=== PATIENT | male | born 1985 | race Two or more races ===

== ENCOUNTER 2016-11-09 14:17 | Emergency (ER) | payer BC ==
[2016-11-09 14:25] VITALS: BP 127/73
[2016-11-09] MEDS ORDERED: DIPH/PERTUSS(ACELL)/TETANUS VAC/PF 0.5 ML SYR (>=10YO) IM ONE (14:25)
[2016-11-09] MEDS ORDERED: LIDOCAINE 1% INJ-PF (10 MG/ML) 30 ML SDV INJ ONE (14:38)
--- NOTE | 2016-11-09 14:38 | ER Document Report ---
ED Wound - General Chief Complaint: Laceration Stated Complaint: HAND LACERATION Time Seen by Provider: 11/09/16 14:25 TRAVEL OUTSIDE OF THE [place] IN LAST 30 DAYS: No - HPI Patient complains to provider of: Laceration Occurred: Just prior to arrival Onset/Duration: Sudden Quality of pain: Throbbing Context: Injury - was trying to instal a washing machine Capillary refill: < 3 seconds Sensations intact: Yes Distal pulses present: Yes - Related Data Allergies/Adverse Reactions: No Known Allergies Allergy (Verified 11/09/16 14:21) Past Medical History - Social History Smoking Status: Never Smoker Family History: Reviewed & Not Pertinent Patient has suicidal ideation: No Patient has homicidal ideation: No Renal/ Medical History: Denies: Hx Peritoneal Dialysis Review of Systems - Review of Systems Constitutional: No symptoms reported Musculoskeletal: No symptoms reported Skin: See HPI -: Yes All other systems reviewed and negative Physical Exam - Vital signs Vitals: Temp Pulse Resp BP Pulse Ox 98.5 F 78 16 127/73 H 97 11/09/16 14:23 11/09/16 14:23 11/09/16 14:23 11/09/16 14:23 11/09/16 14:23 - General General appearance: Appears well, Alert In distress: None - Cardiovascular Pulses: Normal: Radial Normal capillary refill: Yes - Extremities Hand: Normal, Nontender, No evidence of FB. No: Deformity, Dislocation, Laceration, Nail injury, Tendon deficit - Neurological Additional motor exam normals: Equal ranch hand livestock. No: Weakness Sensory: No: Normal - Skin Skin irregularity: Laceration - 2cm leceration on the radial dorsal side of the right thumb, no active bleeding Course - Re-evaluation Re-evalutation: 11/09/16 21:52 Patient is a 31-year-old male who is hemodynamic stable, no acute distress and afebrile. Evidence of foreign body, tendon injury. Tetanus updated. Laceration closed with 3 interrupted sutures of 6-0 nylon. Patient tolerated the procedure well. Patient instructed to follow-up with primary care in 8-10 days of the sutures removed. Patient given strict return precautions and expressed understanding. After performing a Medical Screening Examination, I estimate there is LOW risk for OPEN FRACTURE, COMPARTMENT SYNDROME, TENDON RUPTURE, ACUTE NEUROVASCULAR INJURY, or RETAINED FOREIGN BODY, thus I consider the discharge disposition reasonable. Also, there is no evidence or peritonitis, sepsis, or toxicity. I have reevaluated this patient multiple times and no significant life threatening changes are noted. The patient and I have discussed the diagnosis and risks, and we agree with discharging home with close follow-up with the understanding that symptoms and presentations can change. We also discussed returning to the Emergency Department immediately if new or worsening symptoms occur. We have discussed the symptoms which are most concerning (e.g., changing or worsening pain, fever, numbness, weakness, cool or painful digits) that necessitate immediate return. - Vital Signs Vital signs: Temp Pulse Resp BP Pulse Ox 98.5 F 78 16 127/73 H 97 11/09/16 14:23 11/09/16 14:23 11/09/16 14:23 11/09/16 14:23 11/09/16 14:23 Discharge - Discharge Clinical Impression: Laceration Condition: Good Disposition: HOME, SELF-CARE Instructions: Acetaminophen Additional Instructions: LACERATION CARE: Your laceration has been sutured to keep the skin edges aligned during healing. The time of suture removal depends on the nature and location of your cut. Please follow the care instructions the doctor has outlined for you and return for further care, according to the schedule you've been given. Keep the wound and dressing clean. Unless you were told otherwise, you may shower daily, blotting the wound dry with a clean, unused towel. At other times, If the dressing gets wet or blood soaked, remove it and blot the wound dry, then reapply a new dressing. Unless you were instructed otherwise, dressings should be changed at least daily. If any signs of infection occur (swelling, redness, drainage, increasing tenderness, red streaks, tender lumps in the armpit or groin above the laceration, or fever), see the doctor immediately. SOAP CLEANSING: Gently wash the wound daily using a mild soap (like Ivory, Phisoderm, Neutrogena). Use warm water, rubbing gently until all debris, ooze, and crusting have been washed from the wound. Allow to dry briefly (about 10 minutes) after cleaning. Repeat this cleansing at least three times a day for the first two days and then once or twice a day. ANTIBIOTIC OINTMENT PROTECTION: Your wounds are such that dressing them is not practical or optional. After cleansing, you should apply a thin coating of antibiotic ointment ( Bacitracin, not Neosporin) to the wounds at least three times daily. This lessens infection risk, and may decrease the amount of scarring. Use a q-tip or dull butter knife, not your finger, to apply this ointment. Any debris or ooze which builds up in the ointment should be gently rubbed off with a sterile gauze pad. Harder crusting may need to be gently scrubbed off with a clean wash cloth with soap and warm water, perhaps applying a warm, wet wash cloth to the wound for ten minutes first. Development of redness, severe itching, or blistering may mean allergy to the ointment. See the doctor. TETANUS IMMUNIZATION GIVEN: You have been given an immunization against tetanus. Please record this in your records. In general, a booster is needed only once every 10 years. The tetanus shot protects against tetanus or "lockjaw," which is a complication of certain wound infections (the tetanus shot cannot protect against the actual infection). The immunization site may become warm and red due to local reaction. If this occurs, apply warm compresses and take aspirin or ibuprofen to reduce inflammation and discomfort. Return for evaluation if the reaction becomes severe. FOLLOW-UP CARE: Your sutures should be removed in 8-10 days. To facilitate a timely removal of your sutures, you may return to the Emergency Department at [facility]. You do not need to call for an appointment, but the best time to come in for suture removal is early in the morning. If you have been referred to another physician for follow-up care, call that physicians office for an appointment as you were instructed. If you experience a significant change in your laceration, or if you are concerned there may be an infection (swelling, redness, drainage, increasing tenderness, red streaks, tender lumps in the armpit or groin above the laceration, or fever) , return to the Emergency Department immediately re-evaluation. Referrals: JUAN CARLOS TESFAYE MD [Primary Care Provider] - Follow up as needed
[2016-11-09] MEDS ORDERED: ACETAMINOPHEN 325 MG TABLET PO ONE (15:40)
== END 2016-11-09 16:06 | disposition home or self-care (01) ==
LOC: ER 14:17
PROC: 0HQFXZZ Repair Right Hand Skin, External Approach (ICD-10-PCS; principal; 2016-11-09)
DX: S61.021A Laceration with foreign body of right thumb without damage to nail, initial encounter (principal); W45.8XXA Other foreign body or object entering through skin, initial encounter; Y93.89 Activity, other specified; Y92.009 Unspecified place in unspecified non-institutional (private) residence as the place of occurrence of the external cause; Z23 Encounter for immunization
CPT/HCPCS: 99282; 90715; 12001; J3490

== ENCOUNTER → 2019-05-11 | Outpatient (CLI) | payer BC ==
--- NOTE | 2019-05-11 12:43 | RADIOLOGY REPORT (SQ) ---
EXAM DESCRIPTION: CHEST PA/LATERAL COMPLETED DATE/TIME: 05/11/2019 12:21 pm REASON FOR STUDY: COUGH COMPARISON: 08/28/2014 EXAM PARAMETERS: NUMBER OF VIEWS: two views TECHNIQUE: Digital Frontal and Lateral radiographic views of the chest acquired. RADIATION DOSE: NA LIMITATIONS: none FINDINGS: LUNGS AND PLEURA: Ill-defined right basilar opacities. No pleural effusion or pneumothora x. MEDIASTINUM AND HILAR STRUCTURES: No masses or contour abnormalities. HEART AND VASCULAR STRUCTURES: Heart normal size. No evidence for failure. BONES: No acute findings. HARDWARE: None in the chest. OTHER: No other significant finding. IMPRESSION: Ill-defined right basilar opacities compatible with pneumonia. No significant effusion. TECHNICAL DOCUMENTATION: JOB ID: [id number] [employer]- All Rights Reserved Reading location - IP/workstation name: [email or web address]
[2019-05-11 12:48] LABS: A TYPE INFLUENZA AG NEGATIVE (NEGATIVE); B INFLUENZA AG NEGATIVE (NEGATIVE)
== END ==
LOC: OD 12:07
PROVIDERS: ATTEND Nurse Practitioner Family
DX: J18.9 Pneumonia, unspecified organism (principal); R50.9 Fever, unspecified; R05 Cough
CPT/HCPCS: 71046; 87804

== ENCOUNTER → 2019-05-19 | Outpatient (CLI) | payer BC ==
--- NOTE | 2019-05-19 16:04 | RADIOLOGY REPORT (SQ) ---
EXAM DESCRIPTION: CHEST PA/LATERAL COMPLETED DATE/TIME: 05/19/2019 2:27 pm REASON FOR STUDY: COUGH COMPARISON: 05/11/2019 TECHNIQUE: Frontal and lateral radiographic views of the chest acquired. NUMBER OF VIEWS: Two view. LIMITATIONS: None. FINDINGS: LUNGS AND PLEURA: No opacities, masses or pneumothorax. No pleural effusion. MEDIASTINUM AND HILAR STRUCTURES: No masses or contour abnormalities. HEART AND VASCULAR STRUCTURES: Heart normal size. No evidence for failure. BONES: No acute findings. HARDWARE: None in the chest. OTHER: No other significant finding. IMPRESSION: NO SIGNIFICANT RADIOGRAPHIC FINDING IN THE CHEST. TECHNICAL DOCUMENTATION: JOB ID: [id number] 2010 [email or web address]- All Rights Reserved Reading location - IP/workstation name: [email or web address]
== END ==
LOC: OD 14:14
PROVIDERS: ATTEND Nurse Practitioner Acute Care
DX: R05 Cough (principal)
CPT/HCPCS: 71046